=== PATIENT | female | born 1995 | race Caucasian/White ===

== ENCOUNTER 2019-06-16 14:39 | Emergency (ER) | payer BC ==
--- NOTE | 2019-06-16 15:00 | ED ---
Lower Extremity - HPI Summary HPI Summary: Patient is a 24-year-old female who presents emergency department for a left knee injury that occurred today prior to arrival. Patient states she was playing goalie during a soccer game when she shifted to the right and her left foot caught in a hole injuring left knee. Symptoms are mild in severity. Walking makes symptoms worse. Patient states initially she had a little tingling into her leg which has resolved. - History of Current Complaint Chief Complaint: EDExtremityLower Stated Complaint: LT KNEE INJ PER PT Hx Obtained From: Patient Pain Intensity: 6 - Allergies/Home Medications Allergies/Adverse Reactions: Allergies Allergy/AdvReac Type Severity Reaction Status Date / Time No Known Allergies Allergy Verified 06/16/19 14:49 Home Medications: Home Medications NK [No Home Medications Reported] 06/16/19 [History Confirmed 06/16/19] PMH/Surg Hx/FS Hx/Imm Hx Previously Healthy: Yes Infectious Disease History: No Infectious Disease History: Denies: Traveled Outside the [place] in Last 30 Days - Family History Known Family History: Positive: Non-Contributory - Social History Occupation: Employed Full-time Lives: With Family Review of Systems Positive: Other - left knee pain Skin: Negative Neurological: Negative Negative: Weakness, Paresthesia, Numbness All Other Systems Reviewed And Are Negative: Yes Physical Exam Triage Information Reviewed: Yes Vital Signs On Initial Exam: Initial Vitals Temp Pulse Resp BP Pulse Ox 99.6 F 78 16 109/78 100 06/16/19 14:44 06/16/19 14:44 06/16/19 14:44 06/16/19 14:44 06/16/19 14:44 Vital Signs Reviewed: Yes Appearance: Positive: Well-Appearing - Patient sitting in chair in no acute distress. Friend present. Skin: Positive: Warm, Dry Head/Face: Positive: Normal Head/Face Inspection Eyes: Positive: Normal, EOMI Neck: Positive: Supple Musculoskeletal: Positive: Other - Good left pedal pulse. Pain on palpation over medial aspect of left knee. No increase in laxity with anterior drawer and valgus and varus stressing. No proximal or distal injuries. Neurological: Positive: Normal, CN Intact II-III Psychiatric: Positive: Affect/Mood Appropriate Diagnostics - Vital Signs Vital Signs Temp Pulse Resp BP Pulse Ox 06/16/19 14:44 99.6 F 78 16 109/78 100 - Laboratory Lab Statement: Any lab studies that have been ordered have been reviewed, and results considered in the medical decision making process. Lower Extremity Course/Dx - Course Course Of Treatment: Patient presenting with isolated left knee injury. X-ray negative for acute findings, reading per radiology. Knee immobilizer and crutches placed. Will have patient follow-up with orthopedics for further evaluation of potential ligamental damage. Advised to ice and elevate intermittently. Anti-inflammatories for pain as directed. Patient understands and agrees with plan. - Diagnoses Differential Diagnosis/HQI/PQRI: Positive: Fracture (Closed), Sprain, Strain Provider Diagnoses: Knee sprain Discharge ED - Sign-Out/Discharge Documenting (check all that apply): Patient Departure Patient Received Moderate/Deep Sedation with Procedure: No - Discharge Plan Condition: Good Disposition: HOME Patient Education Materials: Knee Sprain (ED) Referrals: [facility] [[employer], APPLICATION, OTHER] - Rock Chapman MD [Medical Doctor] - Additional Instructions: Call the orthopedic clinic on Tuesday to schedule a follow up appointment for further evaluation Ice and elevate Use immobilizer and crutches Ibuprofen for pain as directed Return to ER if symptoms change or worsen - Billing Disposition and Condition Condition: GOOD Disposition: Home
[2019-06-16] MEDS ORDERED: Ibuprofen TAB* 600 MG PO ONE (15:34)
[2019-06-16 19:27] VITALS: BP 101/42
== END 2019-06-16 16:55 | disposition home or self-care (01) ==
LOC: ED 14:39
DX: S83.92XA Sprain of unspecified site of left knee, initial encounter (principal); X50.0XXA Overexertion from strenuous movement or load, initial encounter; Y93.66 Activity, soccer; Y99.9 Unspecified external cause status
CPT/HCPCS: 99282; A9270-GY

== ENCOUNTER → 2019-07-13 05:35 | Day surgery (SDC) | payer BC ==
[~2019-07-13 05:35] MED LIST: Buffered Lidocaine 1% SYRIN* 1 ML/SYRINGE INTRADERM ONE; Bupivacaine 0.5%* 50 ML MDV VIAL ONE; Dexamethasone IV* 4 MG/ML 1 ML (4 MG) IV SLOW PU ONE; Dexamethasone IV* 4 MG/ML 1 ML (4 MG) ONE; DiMENhydriNATE IV* 50 MG/ML VIAL IV PUSH PRN; DiMENhydriNATE IV* 50 MG/ML VIAL ONE; EPINEPHRINE 1 MG/ML 1 ML VIAL ONE; Famotidine IV* 10 MG/ML 2 ML (20 mg) IV ONE; Famotidine IV* 10 MG/ML 2 ML (20 mg) ONE; HYDROmorphone INJ1* 1 MG/ML SYRINGE IV PRN; HYDROmorphone INJ1* 1 MG/ML SYRINGE ONE; KETAMINE HCL* 50 MG/ML 10 ML VIAL ONE; Ketorolac INJ* 30 MG/ML 1 ML VIAL ONE; Lactated Ringers 1000 ML Bag* 1,000 ML IV SCH; Lidocaine 2% PF * 5 ML VIAL ONE; Midazolam* 1 MG/ML 2 ML VIAL (2 MG) ONE; Naloxone* 0.4 MG/ML 1 ML VIAL IV PRN; Ondansetron INJ* 2 MG/ML VIAL ONE; Rocuronium* 10 MG/ML VIAL ONE; ceFAZolin 2 GM PREMIX in ORs 2 GM/50 ML BAG ONE; fentaNYL* 50 MCG/ML 2 ML VIAL (100 MCG VIAL) ONE; oxyCODONE/Acetamin 5/325 MG* TAB ONE
[2019-07-13] MEDS: fentaNYL* 50 MCG/ML 2 ML VIAL (100 MCG VIAL) IV PRN ×2 (12:19→12:38)
[2019-07-13 13:43] VITALS: BP 115/69
--- NOTE | 2019-07-14 02:11 | OP ---
OPERATIVE REPORT: DATE OF OPERATION: 07/13/19 DATE OF : 89 SURGEON: Lake Miranda MD. SUPERVISOR TUMBLING AND ROLLING: CECILIA Castro. A physician personal care assistant was required for the length of the procedure for assistance with patient positioning, knee manipulation, instrumentation, and closure. ANESTHESIOLOGIST: Dr. Sean Perez. ANESTHESIA: General anesthesia, local anesthesia using 30 cc of Marcaine 0.5% without epinephrine. PRE-OP DIAGNOSES: 1. Left knee anterior cruciate ligament tear. 2. Left knee medial meniscus tear. POST-OP DIAGNOSES: 1. Left knee anterior cruciate ligament tear. 2. Left knee medial meniscus tear. OPERATIVE PROCEDURE: 1. Left knee arthroscopic anterior cruciate ligament reconstruction with bone- patella-bone autograft. 2. Left knee medial meniscus repair using all-inside fixation. ANTIBIOTICS: Ancef 2 g IV. IV FLUIDS: See anesthesia note. [facility] TIME: 163 minutes. TOURNIQUET TIME: 130 minutes total with an 11 minute holiday. SPECIMEN: None. IMPLANTS: [employer] Deana [employer] screws, 9 x 23 mm, x2. [employer] Fast- Fix 360 all-inside meniscus fixation devices x2. ESTIMATED BLOOD LOSS: Minimal. COMPLICATIONS: None. INDICATIONS FOR PROCEDURE: The patient is a 24-year-old woman, student driving instructor at [employer], who injured her left knee on 06/16/19, 3 weeks and 6 days preoperative. MRI made the above mentioned findings. Discussed operative and nonoperative management. The patient and I decided on operative management. Discussed postoperative recovery and restrictions. Discussed risks and potential complications. DESCRIPTION OF PROCEDURE: In preoperative holding, the patient signed a written consent. Operative extremity was marked in preop holding. The patient was taken back to the operating room and placed supine on the operating room table. The patient was sedated and intubated. A tourniquet was applied to the patient's left lower extremity. A lateral post was applied to the table. The left lower extremity was prepped and draped. Surgical time-out performed. An Esmarch was applied and the tourniquet was elevated to 300 mmHg. Anterolateral knee arthroscopy portal was established using standard technique. I started diagnostic arthroscopy. Diagnostic arthroscopy revealed no patellofemoral compartment pathology. Dropped down to the medial compartment. Clear tear in the posterior horn of medial meniscus. No medial compartment articular cartilage injury. Established anteromedial knee arthroscopy portal under direct visualization. Probed the posterior horn. There was a longitudinal tear. It was difficult to determine the exact location, but I believe it was either a white-red zone or red- red zone. Either way, in the context of an ACL reconstruction in a younger patient, it makes sense to repair this rather than perform a partial meniscectomy. Working both through the anteromedial and through the anterolateral portal, I placed 2 Fast-Fix 360 meniscal fixation devices, oblique stitches. I probed the meniscus and it was stable after these stitches were placed. I moved to the lateral compartment. No lateral meniscus tear and no articular cartilage injury. I debrided some anterior synovitic tissue and confirmed the ACL tear with a large stump of ACL still present distally. I exited the knee. Assembled the [facility] knee positioner. Flexed the knee to 90 degrees. I next harvested the zkew-dekzmee-qspz autograft. Midline skin incision made. Dissected down to a paratenon. I split the paratenon. Identified patellar tendon. 30-mm wide. I used a double 10 blade to remove the middle 10 mm of the patellar tendon, connected to bone blocks proximally and distally. Bone block proximally was 23 mm and bone block distal was 28 mm long. Patellar tendon was closed with buried dgduxg-vj-[id number] stitches using Ethibond 0 suture. A tourniquet was dropped for 11 minutes. On the back table, we contoured the bone graft. Holes were placed in the bone blocks proximal and distal. One stitch proximal and 2 stitches distal were placed in the graft using FiberWire #5 suture. The graft was kept on the back table, with a moist sponge around it, under tension. Returned to the knee. Esmarch reapplied and tourniquet reelevated. Returned to the intercondylar notch. Performed notchplasty. Identified the proximal aspect of the posterior articular cartilage. Used a Wolfgang awl to identify the 1:30 o'clock position. Compared this to the proximal aspect of the posterior articular cartilage. They matched up nicely. I used an around the back guide to place a Beath pin. I used a 10-mm Pajaros reamer to ream a femoral tunnel over the Beath pin. Removed instruments and shaved up detritus. That femoral tunnel was drilled with the knee hyperflexed to approximately 115 degrees of flexion. Next, changed the knee back to 90 degrees of flexion. Used a tibial guide set to 55 degrees, placed a Beath pin and drilled a 10-mm tibial tunnel. I placed a passing suture and used that to pass the graft. Notched the femoral tunnel, then tapped for and placed a 9 x 23 mm Deana screw in the femoral tunnel. There was squeaking, tight fit. With the knee fully extended and a posterior drawer applied, I applied a screw after tapping to the tibial tunnel. Screw was 9 x 23 mm. Arthroscopic images showed excellent tension and position of the graft and tunnels. Exam showed no laxity of the ACL in Millicent's and anterior drawer position. I cut suture ends. I performed closure. Closed deep fascia and periosteum overlying the tibial tunnel with [id number]-ry-[id number] stitches using Vicryl 0 suture. Closed the paratenon with running stitches using Vicryl 2-0 suture. Closed deep arthroscopy holes with nqhzan-qk-hxftv stitches using Vicryl 2-0 suture. Closed subcutaneous tissue along longitudinal incision with buried simple stitches using Vicryl 2-0 suture. Closed the arthroscopy skin poke holes with nylon suture and xngbip-fg-ulstn stitches. Closed the long incision with a running stitch in the subcuticular layer with Monocryl 3- 0 suture. A local anesthesia 30 cc was injected about the subcutaneous tissue about the skin incisions. Mastisol, Steri-Strips, 4x4s, ABDs, sterile Webril, Reyes bandage from foot to proximal groin. Cooling unit and knee brace locked in extension. The patient was awakened, extubated, and transferred to the PACU. DISPOSITION: The patient is to be discharged when medically stable. She has a physical therapy appointment scheduled next week. She will take Percocet as needed for pain control, aspirin for 2 weeks for DVT prophylaxis, and a short course of antibiotic for infection prophylaxis. She will be nonweightbearing or toe touch weightbearing in that knee brace for at least the first 4 weeks postoperative. I will limit her to 0 to 60 degrees of flexion for 4 weeks and then we will allow her 0 to 90 degrees for weeks 5 and 6 to protect the meniscal repair. The patient will follow up with me in clinic 10 to 14 days postoperatively. [id number]/CPS #: [id number] MTDD
== END | disposition home or self-care (01) ==
LOC: OR 05:35
PROVIDERS: ATTEND Orthopaedic Surgery
DX: S83.512A Sprain of anterior cruciate ligament of left knee, initial encounter (principal); S83.242A Other tear of medial meniscus, current injury, left knee, initial encounter; X50.0XXA Overexertion from strenuous movement or load, initial encounter; Y93.66 Activity, soccer; Y92.322 Soccer field as the place of occurrence of the external cause
CPT/HCPCS: 81025; A9270-GY; C1776; J0690; J1100; J1170; J1240; J1885; J2250; J2405; J3010; J3490